=== PATIENT | male | born 1980 | race Caucasian/White ===

== ENCOUNTER 2021-08-26 17:33 | Emergency (ER) | payer MEDICAID ==
[~2021-08-26] VITALS: Ht 170.2 cm; Wt 81.8 kg
[2021-08-26] MEDS ORDERED: ALBU8HFA IH ×2 (17:39→23:07)
[2021-08-26] MEDS ORDERED: ALBUTEROL SULFATE 5 MG/ML 20 ML NEB SOLN [BULK] NEB ONE (20:00)
[2021-08-26] MEDS ORDERED: MethylPREDNISolone SOD SUCC 125 MG/2 ML VIAL IM ONE (20:00)
[2021-08-26] MEDS ORDERED: ALBUTEROL SULFATE 2.5 MG/0.5 ML NEB SOLUTION NEB ONE ×2 (20:00→22:00)
[2021-08-26] MEDS ORDERED: IPRATROPIUM BROMIDE 0.5 MG/2.5 ML NEB SOLUTION NEB ONE ×2 (20:00)
[2021-08-26] MEDS ORDERED: 0.9% SODIUM CHLORIDE 5 ML NEB SOLUTION NEB ONE (22:06)
[2021-08-26 22:25] LABS: COVID AG,FIA SOURCE NASOPHARYNGEAL
[2021-08-26] MEDS ORDERED: PRED-554 PO (23:06)
[2021-08-26] MEDS ORDERED: AZIT250T9 PO (23:06)
[2021-08-26 23:47] VITALS: BP 124/73
== END 2021-08-26 23:47 | disposition home or self-care (01) ==
LOC: EMS 17:35
DX: J45.909 Unspecified asthma, uncomplicated (principal); Z79.899 Other long term (current) drug therapy; Z20.822 Contact with and (suspected) exposure to COVID-19
CPT/HCPCS: 71045; 87426; 94644; 96372; 99285; J2930; 94640; J7611; J7613

== ENCOUNTER 2024-06-16 07:37 | Emergency (ER) | payer MEDICAID ==
[~2024-06-16] VITALS: Ht 165.1 cm; Wt 90.9 kg
[~2024-06-16 07:37] MED LIST: ALBU18HF12 IH; AZIT250T9 PO; PRED-554 PO
[2024-06-16 07:43] VITALS: BP 134/74; TEMP 97.3
[2024-06-16 08:43] LABS: COVID AG,FIA SOURCE NASAL SWAB
[2024-06-16] MEDS ORDERED: MethylPREDNISolone SOD SUCC 125 MG/2 ML VIAL IVP ONE (08:45)
[2024-06-16 09:00] LABS: BASOPHILS % (AUTO) 0.3 % (0.0-2.0); EOSINOPHILS % (AUTO) 2.5 % (1.0-6.0); HEMATOCRIT 41.3 % (41-53); HEMOGLOBIN 14.1 g/dL (13.5-17.5); LYMPHOCYTES # (AUTO) 1.5 K/uL (1.0-4.8); LYMPHOCYTES % (AUTO) 9.6 % (22.0-44.0); MEAN CORPUSCULAR HEMOGLOBIN 29.9 pg (26.0-34.0); MEAN CORPUSCULAR HGB CONC 34.1 G/dL (31.0-37.0); MEAN CORPUSCULAR VOLUME 88 fL (80-100); MONOCYTES # (AUTO) 0.9 K/uL (0.1-1.0); MONOCYTES % (AUTO) 5.8 % (2.0-9.0); NEUTROPHILS % (AUTO) 81.8 % (40.0-70.0); PLATELET COUNT (AUTO) 296 K/uL (150-450); RED BLOOD CELL COUNT(AUTO) 4.71 MIL/uL (4.50-5.90); RED CELL DISTRIBUTION WIDTH 12.9 % (11.5-14.5); WHITE BLOOD COUNT (AUTO) 15.9 K/uL (4.5-11.0)
[2024-06-16 09:02] LABS: ANION GAP 5 mmol/L (8-16); CALCIUM, TOTAL 9.4 mg/dL (8.8-10.5); CARBON DIOXIDE 30 mmol/L (22-29); CHLORIDE 101 mmol/L (98-107); CREATININE 0.82 mg/dL (0.60-1.30); GLOMERULAR FILTR. RATE CALC > 60 mL/min (>60); GLUCOSE,RANDOM 100 mg/dL (70-110); POTASSIUM 4.3 mmol/L (3.5-5.1); SODIUM SERUM 136 mmol/L (136-145); UREA NITROGEN, BLOOD 8 mg/dL (7-18)
[2024-06-16] MEDS: ALBUTEROL SULFATE 2.5 MG/0.5 ML NEB SOLUTION NEB ONE (09:02)
[2024-06-16] MEDS: IPRATROPIUM BROMIDE 0.5 MG/2.5 ML NEB SOLUTION NEB ONE (09:02)
[2024-06-16 09:03] VITALS: PULSE 82; RESP 20; O2SAT 98
[2024-06-16 09:06] LABS: SARS-COV2 (COVID) ANTIGEN,FIA Negative (Negative)
[2024-06-16] MEDS: PredniSONE 20 MG TABLET PO ONE (09:06)
[2024-06-16 09:07] LABS: INFLUENZA TYPE A NEGATIVE FOR TYPE A (NEGATIVE); INFLUENZA TYPE B NEGATIVE FOR TYPE B (NEGATIVE)
[2024-06-16] MEDS ORDERED: PRED-554 PO (10:13)
[2024-06-16] MEDS ORDERED: ALBU18HF12 IH (10:14)
[2024-06-16 10:34] VITALS: PULSE 82; RESP 20; O2SAT 98
[2024-06-16] MEDS: ALBUTEROL SULFATE HFA 90 MCG/PUFF 8 GM INHALER IH ONE (10:34)
== END 2024-06-16 10:45 | disposition home or self-care (01) ==
LOC: EMS 07:37
DX: J45.901 Unspecified asthma with (acute) exacerbation (principal); Z79.52 Long term (current) use of systemic steroids; Z20.822 Contact with and (suspected) exposure to COVID-19
CPT/HCPCS: 99284; 71045; 87426; 80048; 85025; 87804; 36415; 94640; J7512; J3535; J7613